=== PATIENT | male | born 1940 | race African-American/Black ===

== ENCOUNTER 2016-11-04 07:40 | Emergency (ER) | payer MEDICARE, MEDICAID ==
[~2016-11-04] VITALS: Ht 190.5 cm; Wt 109.0 kg
[2016-11-04 07:49] VITALS: BP 151/75
== END 2016-11-04 10:57 | disposition home or self-care (01) ==
LOC: ER 09:46
DX: M79.672 Pain in left foot (principal); E11.9 Type 2 diabetes mellitus without complications; I10 Essential (primary) hypertension; M10.9 Gout, unspecified
CPT/HCPCS: 99282

== ENCOUNTER 2016-12-03 02:20 | Emergency (ER) | payer MEDICARE, MEDICAID ==
[~2016-12-03] VITALS: Ht 188 cm; Wt 109.0 kg
[2016-12-03 03:46] VITALS: BP 135/65
[2016-12-03] MEDS ORDERED: ACETAMINOPHEN 325MG TABLET PO ONE (05:00)
== END 2016-12-03 06:22 | disposition home or self-care (01) ==
LOC: ER 02:20
DX: Z76.0 Encounter for issue of repeat prescription (principal); E11.9 Type 2 diabetes mellitus without complications; I10 Essential (primary) hypertension
CPT/HCPCS: 82962; 99283

== ENCOUNTER 2017-01-10 00:33 | Emergency (ER) | payer MEDICARE, MEDICAID ==
[~2017-01-10] VITALS: Ht 190.5 cm; Wt 109.0 kg
[2017-01-10 01:21] VITALS: BP 159/77
[2017-01-10] MEDS ORDERED: NAPROXEN 500MG TABLET PO ONE (02:30)
== END 2017-01-10 03:22 | disposition home or self-care (01) ==
LOC: ER 00:33
DX: M10.9 Gout, unspecified (principal); I10 Essential (primary) hypertension; E11.9 Type 2 diabetes mellitus without complications
CPT/HCPCS: 99283

== ENCOUNTER 2017-09-23 08:41 | Emergency (ER) | payer MEDICARE, MEDICAID ==
[~2017-09-23] VITALS: Ht 188 cm; Wt 109.0 kg
[2017-09-23 08:48] VITALS: BP 151/78
== END 2017-09-23 11:54 | disposition home or self-care (01) ==
LOC: ER 08:57
DX: J06.9 Acute upper respiratory infection, unspecified (principal); I10 Essential (primary) hypertension; J44.0 Chronic obstructive pulmonary disease with (acute) lower respiratory infection; E11.9 Type 2 diabetes mellitus without complications; H40.9 Unspecified glaucoma; J98.11 Atelectasis
CPT/HCPCS: 71046; 99284

== ENCOUNTER 2017-11-02 21:18 | Emergency (ER) | payer MEDICARE, MEDICAID ==
[~2017-11-02] VITALS: Ht 190.5 cm; Wt 109.0 kg
[2017-11-03 02:34] VITALS: BP 139/87
== END 2017-11-03 02:37 | disposition home or self-care (01) ==
LOC: ER 21:59
DX: Z76.0 Encounter for issue of repeat prescription (principal); M10.9 Gout, unspecified; I10 Essential (primary) hypertension; E11.9 Type 2 diabetes mellitus without complications
CPT/HCPCS: 99282

== ENCOUNTER 2018-01-19 16:21 | Emergency (ER) | payer MEDICARE, OTHER, MEDICAID ==
[~2018-01-19] VITALS: Ht 185.4 cm; Wt 100.0 kg
[2018-01-19 16:26] VITALS: BP 156/79
== END 2018-01-20 01:00 | disposition left against medical advice (07) ==
LOC: ER 16:21
DX: Z53.21 Procedure and treatment not carried out due to patient leaving prior to being seen by health care provider (principal)